=== PATIENT | female | born 1970 | race Caucasian/White ===

== ENCOUNTER → 2017-06-03 | Outpatient (CLI) | payer BC ==
--- NOTE | 2017-06-03 10:43 | US ---
EXAMINATION TYPE: US transvaginal DATE OF EXAM: 06/03/2017 COMPARISON: US 2013 CLINICAL HISTORY: N92.6 Irregular menstruation. Irregular cycles x 2 months, 2, para 2 TECHNIQUE: Transvaginal (TV) only per ordering physician Date of LMP: 05/24/17 EXAM MEASUREMENTS: Uterus: 9.5 x 4.0 x 5.2 cm Endometrial Stripe: 0.5 cm Right Ovary: 3.3 x 1.8 x 1.8 cm Left Ovary: 2.2 x 1.2 x 1.6 cm 1. Uterus: anteverted, heterogeneous echogenicity, nabothian cysts 2. Endometrium: wnl 3. Right Ovary: multiple small complex cysts with largest measuring 1.1 x 1.2 x 1.2cm 4. Left Ovary: wnl 5. Bilateral Adnexa: wnl 6. Posterior cul-de-sac: wnl IMPRESSION: 1. Multiple right-sided ovarian complex cysts as discussed reflect hemorrhagic cyst or this can be co nfirmed with follow-up study in 6 weeks.
== END | disposition home or self-care (01) ==
LOC: RADUSWWP 09:33
PROVIDERS: ATTEND Family Medicine
DX: N83.201 Unspecified ovarian cyst, right side (principal)
CPT/HCPCS: 76830

== ENCOUNTER → 2017-07-27 | Outpatient (CLI) | payer BC ==
--- NOTE | 2017-07-27 09:55 | US ---
EXAMINATION TYPE: US transvaginal DATE OF EXAM: 07/27/2017 COMPARISON: Pelvic ultrasound T9 03/13/2018 CLINICAL HISTORY: N92.0 Excess/frequent menstruation w/regular cycle. Follow up ovarian cysts, small amount of daily spotting x couple weeks, patient on control, 2, para 2 TECHNIQUE: Transvaginal exam only per ordering physician. Date of LMP: 05/24/2017 EXAM MEASUREMENTS: Uterus: 8.5 x 4.3 x 5.0 cm Endometrial Stripe: 0.5 cm Right Ovary: 1.9 x 1.0 x 1.4 cm Left Ovary: 2.0 x 1.4 x 1.5 cm 1. Uterus: anteverted, wnl 2. Endometrium: appears wnl 3. Right Ovary: wnl 4. Left Ovary: wnl 5. Bilateral Adnexa: wnl 6. Posterior cul-de-sac: wnl IMPRESSION: Interval resolution of small nonsimple cysts right ovary. No suspicious adnexal masses on current study.
== END | disposition home or self-care (01) ==
LOC: RADUSWWP 08:52
PROVIDERS: ATTEND Family Medicine
DX: N92.0 Excessive and frequent menstruation with regular cycle (principal)
CPT/HCPCS: 76830

== ENCOUNTER → 2017-09-24 | Outpatient (CLI) | payer BC ==
--- NOTE | 2017-09-24 11:56 | US ---
EXAMINATION TYPE: US kidneys/renal and bladder DATE OF EXAM: 09/24/2017 COMPARISON: US, CT CLINICAL HISTORY: N28.1 Cyst of kidney; following left renal cyst EXAM MEASUREMENTS: Right Kidney: 10.9 x 5.2 x 4.1 cm Left Kidney: 10.4 x 5.0 x 5.2 cm Post Void Residual Volume: 10.3 mL Right Kidney: No hydronephrosis or masses seen Left Kidney: lower pole simple cortical cyst = 1.0 x 1.0 x 1.2cm this measured 1.5 x 1.4 x 1.5 cm on the exam of 04/16/2015. Bladder: wnl Bilateral Jets seen: small, bilateral ureteral jets were seen Normal Post Void Residual: yes There is no evidence for hydronephrosis at this point in time. No nephrolithiasis is seen. The urin mary ann bladder is anechoic. Bilateral ureteral jets are seen. IMPRESSION: Left lower pole simple renal cyst measures larger on the exam of 04/16/2015 and should be considered benign.
== END | disposition home or self-care (01) ==
LOC: RADUSWWP 10:57
PROVIDERS: ATTEND Family Medicine
DX: N28.1 Cyst of kidney, acquired (principal)
CPT/HCPCS: 76770

== ENCOUNTER → 2019-03-19 | Outpatient (CLI) | payer BC ==
--- NOTE | 2019-03-19 18:08 | CT ---
EXAMINATION TYPE: CT sinus wo con DATE OF EXAM: 03/19/2019 COMPARISON: 05/12/2016 HISTORY: chronic sinus congestion CT DLP: 448.7 mGycm CONTRAST: 0 mL of Isovue 300 The paranasal sinuses are examined in the axial plane at 2 mm thick sections. Reconstructed images i n the coronal plane were obtained. There is dental amalgam scatter artifact Retention cysts are within the inferior left maxillary sinus. Remaining maxillary sinuses are clear. The ethmoid air cells are clear. The sphenoid sinuses are clear. The frontal sinuses are clear. The septum is evaluated. There is septal deviation to the right. There is been prior uncinectomies. IMPRESSIONS: 1. Paranasal sinus study appears stable from 2015. 2. Small retention cyst inferior right maxillary sinus. 3 prior postsurgical changes.
== END | disposition home or self-care (01) ==
LOC: RADCTMAIN 07:50
PROVIDERS: ATTEND Family Medicine
DX: J34.1 Cyst and mucocele of nose and nasal sinus (principal); Z98.890 Other specified postprocedural states
CPT/HCPCS: 70486

== ENCOUNTER 2022-02-14 10:53 | Day surgery (SDC) | payer BC ==
[2022-02-12 10:36] VITALS: BMI 25.2
[~2022-02-14 10:53] MED LIST: LACTATED RINGERS 1,000 ML IV SCH; LIDOCAINE 1% (10MG/ML) FOR IV START INTRADERMA PRN
[2022-02-14 11:36] VITALS: TEMP 97.4
[2022-02-14] MEDS ORDERED: LACTATED RINGERS 1,000 ML IV ONE (11:38)
[2022-02-14] MEDS ORDERED: ONDANSETRON 4 MG/2 ML VIAL ONE (13:09)
[2022-02-14] MEDS ORDERED: PROPOFOL 10 MG/ML 20 ML VIAL IV ONE (13:09)
[2022-02-14] MEDS ORDERED: LIDOCAINE 2% INJ 20 MG/ML (2 ML VIAL) ONE (13:09)
--- NOTE | 2022-02-14 13:36 | P.PCN ---
Date of Procedure: 02/14/22 Procedure(s) Performed: BRIEF HISTORY: Patient is a 51-year-old pleasant white female scheduled for an elective colonoscopy as a part of the for colorectal neoplasia. She has 2 maternal uncles diagnosis colon cancer at age 60 and 65 respectively. Her last colonoscopy was 10 years ago. PROCEDURE PERFORMED: Colonoscopy. PREOPERATIVE DIAGNOSIS: Screening for colon cancer and family history of colon cancer. IV sedation per Anesthesia. PROCEDURE: After informed consent was obtained, the patient, was brought into the endoscopy unit. IV sedation was administered by Anesthesia under continuous monitoring. Digital rectal examination was normal. Initially the Olympus CF-160 flexible video colonoscope was then inserted in the rectum, gradually advanced into the cecum without any difficulty. Careful examination was performed as the scope was gradually being withdrawn. Ileocecal valve and the appendiceal orifice were visualized and appeared normal. Prep was excellent. Mucosa of the cecum, ascending colon, transverse colon, descending colon, sigmoid colon, and rectum appeared normal. Retroflexion was performed in the rectum and no lesions were seen. The patient tolerated the procedure well. IMPRESSION: Normal-appearing colon from rectum to cecum with no evidence of colorectal neoplasia . RECOMMENDATIONS: Findings of this examination were discussed with the patient as well as a family. She was advised to have a repeat screening colonoscopy every 5 years because of family history of colon cancer.
[2022-02-14 13:44] VITALS: RESP 16
[2022-02-14 14:01] VITALS: BP 151/80; PULSE 76
== END 2022-02-14 14:15 | disposition home or self-care (01) ==
LOC: ORWHC2ENDO 10:53
PROVIDERS: ATTEND Internal Medicine Gastroenterology
DX: Z12.11 Encounter for screening for malignant neoplasm of colon (principal); I10 Essential (primary) hypertension; K21.9 Gastro-esophageal reflux disease without esophagitis; E07.9 Disorder of thyroid, unspecified; Z87.891 Personal history of nicotine dependence; Z80.0 Family history of malignant neoplasm of digestive organs; Z88.1 Allergy status to other antibiotic agents; Z79.890 Hormone replacement therapy; Z79.1 Long term (current) use of non-steroidal anti-inflammatories (NSAID); Z79.899 Other long term (current) drug therapy; Z79.891 Long term (current) use of opiate analgesic
CPT/HCPCS: 81025; 45378; J2405; J2704; J2001